=== PATIENT | male | born 1945 | race Caucasian/White ===

== ENCOUNTER 2018-02-01 15:19 | Emergency (ER) | payer MEDICARE, BC ==
[2018-02-01] MEDS ORDERED: Albuterol/Ipratropium 3.0-0.5 MG/3 ML Neb Soln NEB ONE (15:44)
--- NOTE | 2018-02-01 15:57 | EDM.PDOC ---
ED HPI GENERAL MEDICAL PROBLEM - General Chief Complaint: Respiratory Problem Stated Complaint: DIFFICULTY BREATHING Time Seen by Provider: 02/01/18 15:30 Source of Information: Reports: Patient History Limitations: Reports: No Limitations - History of Present Illness INITIAL COMMENTS - FREE TEXT/NARRATIVE: The patient presents with a cough and shortness of breath. This has been going on for a few days. He has a history of throat cancer with surgery on now a trach stoma. He had the paramedics stop by last night and they recommended he see his doctor. He cannot wait until tomorrow. He is coughing up some yellow phlegm and blood with it. He has no history of COPD or asthma. He quit smoking 7 years ago when he was diagnosed with throat cancer. He has some pain with coughing. He does not feel like he has a fever or chills. He has no abdominal pain, nausea or vomiting. Onset: Gradual Duration: Day(s): (4) Location: Reports: Chest Quality: Reports: Ache Severity: Mild Worsens with: Reports: Other (coughing) Associated Symptoms: Reports: Chest Pain, Cough, cough w sputum, Shortness of Breath. Denies: Fever/Chills, Headaches, Nausea/Vomiting Chest Pain Score (Numeric/FACES): 5 - Related Data Allergies Allergy/AdvReac Type Severity Reaction Status Date / Time No Known Allergies Allergy Verified 01/05/16 13:33 Home Meds: Home Meds Azithromycin [IJD: Azithromycin] 250 mg PO DAILY #4 tab 02/01/18 [Rx] Past Medical History HEENT History: Reports: Hard of Hearing, Impaired Vision Cardiovascular History: Reports: High Cholesterol Respiratory History: Reports: Pneumonia, Recurrent, Other (See Below) Other Respiratory History: trach has been for almost 7 years-throat cancer Musculoskeletal History: Reports: Arthritis Other Musculoskeletal History: hands and toes Psychiatric History: Reports: None, Anxiety, Dementia Oncologic (Cancer) History: Reports: Other (See Below) Other Oncologic History: throat cancer Social & Family History - Tobacco Use Smoking Status *Q: Former Smoker - Recreational Drug Use Recreational Drug Use: No ED ROS GENERAL - Review of Systems Review Of Systems: See Below Constitutional: Reports: No Symptoms HEENT: Reports: No Symptoms Respiratory: Reports: Shortness of Breath, Cough Cardiovascular: Reports: Chest Pain (with coughing) Endocrine: Reports: No Symptoms GI/Abdominal: Reports: No Symptoms : Reports: No Symptoms ED EXAM, GENERAL - Physical Exam Exam: See Below Exam Limited By: No Limitations General Appearance: Alert, No Apparent Distress Ears: Normal External Exam Nose: Normal Inspection Head: Atraumatic, Normocephalic Neck: Normal Inspection Respiratory/Chest: No Respiratory Distress, Rhonchi (Left lung) Cardiovascular: Regular Rate, Rhythm, No Edema, No Murmur GI/Abdominal: Soft, Non-Tender, No Organomegaly, No Mass Rectal (Males) Exam: Normal Exam Back Exam: Normal Inspection Extremities: Normal Inspection Course - Vital Signs Last Recorded V/S: Last Vital Signs Temp 99.2 F 02/01/18 15:32 Pulse 92 02/01/18 15:32 Resp 20 02/01/18 15:32 BP 150/75 H 02/01/18 15:32 Pulse Ox 93 L 02/01/18 15:55 - Orders/Labs/Meds Orders: Active Orders 24 hr Category Date Time Status Cardiac Monitoring [RC] . DIRECTED Care 02/01/18 15:44 Active Peripheral IV Care [RC] . DIRECTED Care 02/01/18 16:48 Active RT Aerosol Therapy [RC] ASDIRECTED Care 02/01/18 15:44 Active Chest 2V [CR] Stat Exams 02/01/18 15:44 Taken Sodium Chloride 0.9% [Normal Saline] 100 ml Med 02/01/18 17:15 Active IV ASDIRECTED Sodium Chloride 0.9% [Saline Flush] Med 02/01/18 16:48 Active 10 ml FLUSH ASDIRECTED PRN Peripheral IV Insertion Adult [OM.PC] Routine Oth 02/01/18 16:48 Ordered Medication Orders Sodium Chloride (Normal Saline) 100 mls @ 60 mls/hr IV ASDIRECTED COLE Last Admin: 02/01/18 17:27 Dose: 60 mls/hr Sodium Chloride (Saline Flush) 10 ml FLUSH ASDIRECTED PRN PRN Reason: Keep Vein Open Last Admin: 02/01/18 17:00 Dose: 10 ml Labs: Laboratory Tests 02/01/18 02/01/18 02/01/18 Range/Units 15:57 15:57 15:57 WBC 9.03 (4.23-9.07) K/mm3 RBC 4.28 L (4.63-6.08) M/mm3 Hgb 13.9 (13.7-17.5) gm/L Hct 41.5 (40.1-51.0) % MCV 97.0 H (79.0-92.2) fl MCH 32.5 H (25.7-32.2) pg MCHC 33.5 (32.2-35.5) g/dl RDW Std Deviation 43.8 (35.1-43.9) fL Plt Count 185 (163-337) K/mm3 MPV 9.2 L (9.4-12.3) fl Neut % (Auto) 82.3 H (34.0-67.9) % Lymph % (Auto) 5.4 L (21.8-53.1) % [place] % (Auto) 10.5 (5.3-12.2) % Eos % (Auto) 1.2 (0.8-7.0) Baso % (Auto) 0.4 (0.1-1.2) % Neut # (Auto) 7.42 H (1.78-5.38) K/mm3 Lymph # (Auto) 0.49 L (1.32-3.57) K/mm3 [place] # (Auto) 0.95 H (0.30-0.82) K/mm3 Eos # (Auto) 0.11 (0.04-0.54) K/mm3 Baso # (Auto) 0.04 (0.01-0.08) K/mm3 Manual Slide Review Abnormal smear D-Dimer, Quantitative 0.82 H (0.19-0.59) mg/L Sodium 138 (136-145) mEq/L Potassium 4.1 (3.5-5.1) mEq/L Chloride 104 (98-107) mEq/L Carbon Dioxide 24 (21-32) mEq/L Anion Gap 14.1 (5-15) BUN 21 H (7-18) mg/dL Creatinine 1.0 (0.7-1.3) mg/dL Est Cr Clr Drug Dosing 72.21 mL/min Estimated GFR (MDRD) > 60 (>60) mL/min BUN/Creatinine Ratio 21.0 H (14-18) Glucose 129 H (83-115) mg/dL Calcium 8.5 (8.5-10.1) mg/dL Total Bilirubin 0.4 (0.2-1.0) mg/dL AST 22 (15-37) U/L ALT 18 (16-63) U/L Alkaline Phosphatase 62 (46-116) U/L Total Protein 6.8 (6.4-8.2) g/dl Albumin 3.4 (3.4-5.0) g/dl Globulin 3.4 gm/dL Albumin/Globulin Ratio 1.0 (1-2) Meds: Medications Generic Name Dose Route Start Last Admin Trade Name Freq PRN Reason Stop Dose Admin Sodium Chloride 100 mls @ 60 mls/hr 02/01/18 17:15 02/01/18 17:27 Normal Saline IV 60 mls/hr ASDIRECTED COLE Administration Sodium Chloride 10 ml 02/01/18 16:48 02/01/18 17:00 Saline Flush FLUSH 10 ml ASDIRECTED PRN Administration Keep Vein Open Discontinued Medications Generic Name Dose Route Start Last Admin Trade Name Freq PRN Reason Stop Dose Admin Albuterol/Ipratropium 3 ml 02/01/18 15:44 02/01/18 15:55 Duoneb 3.0-0.5 Mg/3 Ml NEB 02/01/18 15:45 3 ml ONETIME ONE Administration Iopamidol 100 ml 02/01/18 17:07 02/01/18 17:27 Isovue-370 (76%) IVPUSH 02/01/18 17:08 80 ml ONETIME ONE Administration Sodium Chloride 10 ml 02/01/18 17:07 02/01/18 17:27 Saline Flush FLUSH 02/01/18 17:08 10 ml ONETIME ONE Administration - Re-Assessments/Exams Free Text/Narrative Re-Assessment/Exam: 02/01/18 15:56 I ordered labs, CXR and a duoneb. 02/01/18 18:00 His CXR looks like an infiltrate in the left lower lung. His WBC is normal. His D-dimer was elevated at 0.82. I ordered a CT angio of he chest. His CT shows no findings of pulmonary embolism. Diffuse coronary artery calcification. Scarring/atelectasis to the left lung. I feel he has bronchitis. I will give him an inhaler with teaching here and some zithromax. I will also have him some use some robitussion or other cough medicine for the cough. Departure - Departure Time of Disposition: 18:05 Disposition: Home, Self-Care 01 Condition: Good Clinical Impression: Bronchitis - Discharge Information Prescriptions: Azithromycin [IJD: Azithromycin] 250 mg PO DAILY #4 tab Referrals: Armando Solis MD [Primary Care Provider] - 1 Week Forms: ED Department Discharge Additional Instructions: Take the zithromax daily for 4 more days. Use the inhaler 2 puffs every 6 hours as needed for shortness of breath. Use robitussin or some other cough medicine for cough. Please return if you are worse. - My Orders Last 24 Hours: My Active Orders 02/01/18 15:44 Cardiac Monitoring [RC] . DIRECTED RT Aerosol Therapy [RC] ASDIRECTED Chest 2V [CR] Stat 02/01/18 16:48 Peripheral IV Care [RC] . DIRECTED Sodium Chloride 0.9% [Saline Flush] 10 ml FLUSH ASDIRECTED PRN Peripheral IV Insertion Adult [OM.PC] Routine 02/01/18 17:15 Sodium Chloride 0.9% [Normal Saline] 100 ml IV ASDIRECTED - Assessment/Plan Last 24 Hours: My Active Orders 02/01/18 15:44 Cardiac Monitoring [RC] . DIRECTED RT Aerosol Therapy [RC] ASDIRECTED Chest 2V [CR] Stat 02/01/18 16:48 Peripheral IV Care [RC] . DIRECTED Sodium Chloride 0.9% [Saline Flush] 10 ml FLUSH ASDIRECTED PRN Peripheral IV Insertion Adult [OM.PC] Routine 02/01/18 17:15 Sodium Chloride 0.9% [Normal Saline] 100 ml IV ASDIRECTED
[2018-02-01] MEDS ORDERED: Sodium Chloride 0.9% 10 ML Syringe FLUSH PRN (16:48)
[2018-02-01] MEDS ORDERED: Sodium Chloride 0.9% 10 ML Syringe FLUSH ONE (17:07)
[2018-02-01] MEDS ORDERED: Iopamidol 755 Mg/ML 100 ML Bottle IVPUSH ONE (17:07)
[2018-02-01] MEDS ORDERED: Sodium Chloride 0.9% 100 ML IV SCH (17:15)
--- NOTE | 2018-02-01 17:52 | CT ---
CT chest Technique: Multiple axial sections through the chest were obtained. Intravenous contrast was utilized. Study has been performed as a pulmonary angiogram protocol. Comparison: No prior CT exam, chest x-ray performed earlier in the same day (3:58 PM as well as chest x-ray of 01/05/16. Findings: Pulmonary arteries are well-opacified. No filling defects are seen to indicate pulmonary embolism. Diffuse coronary artery calcification is seen. Small lymph nodes seen within the mediastinum and within the right hilar region believed to be within normal limits. Several small lymph nodes also seen within the subcarinal region. No pericardial thickening is seen. Small portion of the visualized upper abdominal structures shows evidence of prior cholecystectomy. Slight basilar interstitial fibrosis is seen. Scarring/atelectasis is seen within the lingula. Lungs otherwise are clear with no acute parenchymal densities being seen. No pleural effusions are seen. No pneumothorax is seen. Bone window settings were reviewed which shows scattered degenerative endplate spurring within the spine. Impression: 1. No findings of pulmonary embolism. 2. Diffuse coronary artery calcification. 3. Other findings are felt to be incidental as described above. Diagnostic code #2
[2018-02-01] MEDS ORDERED: Albuterol 6.7 GM Inhaler INH ONE (18:02)
[2018-02-01] MEDS ORDERED: Azithromycin 250 MG Tab PO ONE (18:03)
[2018-02-01 19:11] VITALS: BP 125/90
--- NOTE | 2018-02-02 07:23 | CR ---
Chest: Two views of the chest were obtained. Comparison: Prior chest x-ray of 01/05/16. Heart size is normal. Tortuous thoracic aorta is seen. Scarring is seen within the left base. Lungs otherwise are clear with no acute parenchymal change. Heart size is normal. Tortuous thoracic aorta is seen. Bony structures show degenerative spurring within the spine. Impression: 1. Slight parenchymal scarring within the left base. Other incidental findings. 2. Nothing acute is appreciated on two-view chest x-ray. Diagnostic code #2
== END 2018-02-01 18:20 | disposition home or self-care (01) ==
LOC: JD.ED 15:19
DX: J40 Bronchitis, not specified as acute or chronic (principal); Z87.891 Personal history of nicotine dependence; Z85.12 Personal history of malignant neoplasm of trachea
CPT/HCPCS: 36415; 71046; 71275; 80053; 85025; 85379; 94640; 94664; 99285; A9270; J7030; J7050; Q9967; 99283

== ENCOUNTER 2019-01-22 06:15 | Day surgery (SDC) | payer MEDICARE, BC ==
--- NOTE | 2019-01-21 11:00 | PCM.PREANE ---
Preanesthetic Assessment - Anesthesia/Transfusion/Family Hx Anesthesia History: Prior Anesthesia Without Reaction Family History of Anesthesia Reaction: No Transfusion History: No Prior Transfusion(s) Intubation History: Unknown - Review of Systems Pulmonary: No Symptoms (History of larynx cancer with laryngectomy-stoma noted) Gastrointestinal: No Symptoms (History of prostate cancer) Neurological: No Symptoms Other: Reports: Depression, Anxiety - Physical Assessment NPO Status Date: 01/21/19 Height: 1.8 m ASA Class: 2 Mental Status: Alert & Oriented x3 - Allergies Allergies/Adverse Reactions: Allergies Allergy/AdvReac Type Severity Reaction Status Date / Time No Known Allergies Allergy Verified 01/05/16 13:33 - Anesthesia Plan Pre-Op Medication Ordered: None - Acknowledgements Anesthesia Type Planned: MAC Pt an Appropriate Candidate for the Planned Anesthesia: Yes Alternatives and Risks of Anesthesia Discussed w Pt/Guardian: Yes Pt/Guardian Understands and Agrees with Anesthesia Plan: Yes PreAnesthesia Questionnaire HEENT History: Reports: Hard of Hearing, Impaired Vision Cardiovascular History: Reports: High Cholesterol Respiratory History: Reports: Pneumonia, Recurrent, Other (See Below) Other Respiratory History: trach has been for almost 7 years-throat cancer Musculoskeletal History: Reports: Arthritis Other Musculoskeletal History: hands and toes Psychiatric History: Reports: None, Anxiety, Dementia Oncologic (Cancer) History: Reports: Other (See Below) Other Oncologic History: throat cancer - HOME MEDS Home Medications: Home Meds Azithromycin [IJD: Azithromycin] 250 mg PO DAILY #4 tab 02/01/18 [Rx] - CURRENT (IN HOUSE) MEDS Current Meds: Current Medications Lactated Ringer's (Ringers, Lactated) 1,000 mls @ 125 mls/hr IV ASDIRECTED COLE Stop: 01/22/19 23:00 Lidocaine/Sodium Bicarbonate (Buffered Lidocaine 1% In Ns 8.4%) 0.25 ml IDERM ONETIME PRN PRN Reason: Prior to IV Start Stop: 01/22/19 18:00 Sodium Chloride (Saline Flush) 10 ml FLUSH ASDIRECTED PRN PRN Reason: Keep Vein Open Stop: 01/22/19 18:00
[2019-01-22] MEDS ORDERED: Sodium Chloride 0.9% 10 ML Syringe FLUSH PRN (07:00)
[2019-01-22] MEDS ORDERED: Lidocaine 1%/Sod Bicarbonate in NS 8.4% 1 ML Syringe IDERM PRN (07:00)
[2019-01-22] MEDS ORDERED: Lactated Ringers 1,000 ML IV SCH (07:00)
--- NOTE | 2019-01-22 07:09 | PCM.PREANE ---
Preanesthetic Assessment - Anesthesia/Transfusion/Family Hx Anesthesia History: Prior Anesthesia Without Reaction Family History of Anesthesia Reaction: No Transfusion History: No Prior Transfusion(s) Intubation History: Unknown - Review of Systems General: No Symptoms Pulmonary: No Symptoms (Laryngectomy with stoma noted along with speaking valve. ) Cardiovascular: No Symptoms Gastrointestinal: No Symptoms (History of prostate cancer) Neurological: No Symptoms Other: Reports: Easy Bruising, Depression, Anxiety - Physical Assessment NPO Status Date: 01/21/19 NPO Status Time: 21:00 Pulse: 70 O2 Sat by Pulse Oximetry: 97 Respiratory Rate: 16 Blood Pressure: 121/80 Temperature: 36.9 C Vital Signs: Last Vital Signs Temp 36.9 C 01/22/19 06:30 Pulse 70 01/22/19 06:30 Resp 16 01/22/19 06:30 BP 121/80 01/22/19 06:30 Pulse Ox 97 01/22/19 06:30 Height: 1.83 m Weight: 92.533 kg ASA Class: 2 Mental Status: Alert & Oriented x3 Airway Class: Mallampati = 2 Dentition: Reports: Normal Dentition, Caries Thyro-Mental Finger Breadths: 3 Mouth Opening Finger Breadths: 3 ROM/Head Extension: Full Lungs: Clear to Auscultation, Normal Respiratory Effort Cardiovascular: Regular Rate, Regular Rhythm, No Murmurs - Allergies Allergies/Adverse Reactions: Allergies Allergy/AdvReac Type Severity Reaction Status Date / Time No Known Allergies Allergy Verified 01/21/19 14:05 - Anesthesia Plan Pre-Op Medication Ordered: None - Acknowledgements Anesthesia Type Planned: MAC Pt an Appropriate Candidate for the Planned Anesthesia: Yes Alternatives and Risks of Anesthesia Discussed w Pt/Guardian: Yes Pt/Guardian Understands and Agrees with Anesthesia Plan: Yes PreAnesthesia Questionnaire HEENT History: Reports: Other (See Below) Other HEENT History: hearing loss, laryngectomy Cardiovascular History: Reports: High Cholesterol Respiratory History: Reports: None Other Respiratory History: trach has been for almost 7 years-throat cancer Genitourinary History: Reports: BPH REPORTING SPECIALIST History: Reports: None Musculoskeletal History: Reports: None Other Musculoskeletal History: hands and toes Neurological History: Reports: None Psychiatric History: Reports: None Endocrine/Metabolic History: Reports: None Hematologic History: Reports: None Oncologic (Cancer) History: Reports: None Other Oncologic History: throat cancer Dermatologic History: Reports: None - Past Surgical History Head Surgeries/Procedures: Reports: None Cardiovascular Surgical History: Reports: None Respiratory Surgical History: Reports: None GI Surgical History: Reports: Cholecystectomy Male Surgical History: Reports: Prostatectomy Neurological Surgical History: Reports: None Musculoskeletal Surgical History: Reports: None Oncologic Surgical History: Reports: None Dermatological Surgical History: Reports: None - SUBSTANCE USE Smoking Status *Q: Former Smoker Recreational Drug Use History: No - HOME MEDS Home Medications: Home Meds ClonazePAM [KlonoPIN] 0.5 mg PO DAILY PRN 01/21/19 [History] Cyanocobalamin (Vitamin B-12) [Vitamin B-12] 1,000 mcg PO DAILY 01/21/19 [ History] FLUoxetine [PROzac] 10 mg PO DAILY 01/21/19 [History] Multivitamin [Daily Multiple Vitamin] 1 tab PO DAILY 01/21/19 [History] Pravastatin [Pravachol] 40 mg PO DAILY 01/21/19 [History] Ubidecarenone [Coq-10] 200 mg PO DAILY 01/21/19 [History] Vitamin B Complex [B Complex] 1 tab PO DAILY 01/21/19 [History] buPROPion [Wellbutrin SR] 150 mg PO DAILY 01/21/19 [History] - CURRENT (IN HOUSE) MEDS Current Meds: Current Medications Lactated Ringer's (Ringers, Lactated) 1,000 mls @ 125 mls/hr IV ASDIRECTED COLE Stop: 01/22/19 23:00 Last Admin: 01/22/19 06:45 Dose: 125 mls/hr Lidocaine/Sodium Bicarbonate (Buffered Lidocaine 1% In Ns 8.4%) 0.25 ml IDERM ONETIME PRN PRN Reason: Prior to IV Start Stop: 01/22/19 18:00 Last Admin: 01/22/19 06:45 Dose: 0.25 ml Sodium Chloride (Saline Flush) 10 ml FLUSH ASDIRECTED PRN PRN Reason: Keep Vein Open Stop: 01/22/19 18:00
[2019-01-22] MEDS ORDERED: Lidocaine 1% 6 ML ONE (07:24)
[2019-01-22] MEDS ORDERED: Propofol 200 MG/20 ML SDV ONE (07:24)
[2019-01-22] MEDS ORDERED: fentaNYL 100 MCG/2 ML SDV ONE (07:25)
[2019-01-22] MEDS ORDERED: Lactated Ringers 1,000 ML ONE (07:40)
[2019-01-22] MEDS ORDERED: Simethicone Drops 40 MG/0.6 ML 30 ML Bottle ONE (08:00)
--- NOTE | 2019-01-22 08:27 | PCM.OPNOTE ---
- General Post-Op/Procedure Note Date of Surgery/Procedure: 01/22/19 Operative Procedure(s): Colonoscopy with hot snare polypectomy and cold forceps biopsy Findings: Colon polyps x 5 Pre Op Diagnosis: Family history of colon cancer Post-Op Diagnosis: Colon polyps x 5 Anesthesia Technique: MAC Primary Surgeon: Armando Solis Anesthesia Provider: Victoria Montanez EBL in mLs: 5 Complications: None Condition: Good Free Text/Narrative:: After the patient gave verbal and written consent he was placed on blood pressure and pulse ox monitoring, he was give IV sedation which he tolerated well. The olympus colonoscope was inserted per rectum and advanced to the cecum without difficulty, the ileocecal valve and appendiceal orfice were imaged documenting cecal intubation. The scope was slowly withdrawn. The mucosal surfaces were carefully examined. The prep was good, the views were good. 2 x 2 mm ascending colon polyps were noted and removed with cold forceps biopsy, 2 x 2 mm sigmoid polyps were noted and removed with cold forceps biopsy. There was good hemostasis. There was a 6 mm distal sigmoid polyp noted and removed with hot snare polypectomy. There was good hemostasis. The scope was then retroflexed in the rectum and the details are above. The patient left the endoscopy suite in good condition. There were no complications.
--- NOTE | 2019-01-22 08:28 | PCM48HPAN ---
Post Anesthesia Note - EVALUATION WITHIN 48HRS OF ANESTHETIC Vital Signs in Normal Range: Yes Patient Participated in Evaluation: Yes Respiratory Function Stable: Yes Airway Patent: Yes Cardiovascular Function Stable: Yes Hydration Status Stable: Yes Pain Control Satisfactory: Yes Nausea and Vomiting Control Satisfactory: Yes Mental Status Recovered: Yes
[2019-01-22 09:00] VITALS: BP 125/67
== END 2019-01-22 09:12 | disposition home or self-care (01) ==
LOC: JD.SDS 06:15
PROVIDERS: ATTEND Family Medicine
DX: Z12.11 Encounter for screening for malignant neoplasm of colon (principal); D12.2 Benign neoplasm of ascending colon; D12.5 Benign neoplasm of sigmoid colon; E78.2 Mixed hyperlipidemia; F41.9 Anxiety disorder, unspecified; F32.9 Major depressive disorder, single episode, unspecified; Z80.0 Family history of malignant neoplasm of digestive organs; Z79.899 Other long term (current) drug therapy
CPT/HCPCS: 45380; 45385; A9270; J2001; J2704; J3010; J7120; 00812

== ENCOUNTER 2021-07-02 10:37 | Emergency (ER) | payer MEDICARE, BC ==
[2021-07-02] MEDS ORDERED: Sodium Chloride 0.9% 10 ML Syringe FLUSH PRN (11:03)
--- NOTE | 2021-07-02 11:11 | EDM.PDOC ---
ED HPI GENERAL MEDICAL PROBLEM - General Chief Complaint: Cardiovascular Problem Stated Complaint: [facility] Time Seen by Provider: 07/02/21 10:58 Source of Information: Reports: Patient, EMS History Limitations: Reports: No Limitations - History of Present Illness INITIAL COMMENTS - FREE TEXT/NARRATIVE: The patient presents by [facility] for chest pain. The patient says his blood pressure has been up and down the past few days and this morning he had some chest heaviness. He also did not feel well yesterday. He has no fever, chills, cough, shortness of breath, abdominal pain, nausea or vomiting. He has a history of throat cancer with surgery and he uses a voice box to help him talk. He had stents placed in May and he is having more cardiac stents placed on July 24. The chest heaviness is gone now. Onset: Gradual Duration: Hour(s): Location: Reports: Chest Quality: Reports: Other (heaviness) Severity: Mild Improves with: Reports: None Worsens with: Reports: None Associated Symptoms: Reports: Chest Pain. Denies: Cough, Fever/Chills, Headaches, Nausea/Vomiting, Shortness of Breath - Related Data Allergies Allergy/AdvReac Type Severity Reaction Status Date / Time No Known Allergies Allergy Verified 07/02/21 10:41 Home Meds: Home Meds ClonazePAM [KlonoPIN] 0.5 mg PO DAILY PRN 01/21/19 [History] Cyanocobalamin (Vitamin B-12) [Vitamin B-12] 100 mcg PO DAILY 01/21/19 [History] FLUoxetine [PROzac] 10 mg PO DAILY 01/21/19 [History] Multivitamin [Daily Multiple Vitamin] 1 tab PO DAILY 01/21/19 [History] Pravastatin [Pravachol] 40 mg PO DAILY 01/21/19 [History] Ubidecarenone [Coq-10] 200 mg PO DAILY 01/21/19 [History] Vitamin B Complex [B Complex] 1 tab PO DAILY 01/21/19 [History] buPROPion [Wellbutrin SR] 150 mg PO DAILY 01/21/19 [History] Clopidogrel Bisulfate [Plavix] 75 mg PO DAILY 07/02/21 [History] Isosorbide Mononitrate [Imdur] 15 mg PO DAILY 07/02/21 [History] Rosuvastatin [Crestor] 20 mg PO DAILY 07/02/21 [History] Past Medical History HEENT History: Reports: Hard of Hearing Other HEENT History: hearing loss, laryngectomy Cardiovascular History: Reports: High Cholesterol, [place] Respiratory History: Reports: None Other Respiratory History: trach has been for almost 7 years-throat cancer Gastrointestinal History: Reports: Colon Polyp Genitourinary History: Reports: BPH [employer] History: Reports: None Musculoskeletal History: Reports: Arthritis Other Musculoskeletal History: hands and toes Neurological History: Reports: Other (See Below) (Intention tremor) Psychiatric History: Reports: Anxiety, Depression Endocrine/Metabolic History: Reports: None Hematologic History: Reports: None Oncologic (Cancer) History: Reports: Prostate, Other (See Below) Other Oncologic History: throat cancer Dermatologic History: Reports: None - Past Surgical History Head Surgeries/Procedures: Reports: None HEENT Surgical History: Reports: Other (See Below) Cardiovascular Surgical History: Reports: Coronary Artery Stent GI Surgical History: Reports: Cholecystectomy, Colonoscopy, Hernia, Abdominal Male Surgical History: Reports: Prostatectomy Oncologic Surgical History: Reports: Other (See Below) Other Oncologic Surgeries/Procedures: trach placed. Social & Family History - Tobacco Use Tobacco Use Status *Q: Former Tobacco User Used Tobacco, but Quit: Yes Month/Year Tobacco Last Used: Oct 2011 - Caffeine Use Caffeine Use: Reports: Coffee - Recreational Drug Use Recreational Drug Use: No - Living Situation & Occupation Living situation: Reports: , with Spouse Occupation: Retired ED ROS GENERAL - Review of Systems Review Of Systems: See Below Constitutional: Reports: No Symptoms HEENT: Reports: No Symptoms Respiratory: Reports: No Symptoms Cardiovascular: Reports: Chest Pain Endocrine: Reports: No Symptoms GI/Abdominal: Reports: No Symptoms : Reports: No Symptoms ED EXAM, GENERAL - Physical Exam Exam: See Below Exam Limited By: No Limitations General Appearance: Alert, No Apparent Distress Ears: Normal External Exam Nose: Normal Inspection Throat/Mouth: Normal Inspection Neck: Normal Inspection Respiratory/Chest: No Respiratory Distress, Lungs Clear, Normal Breath Sounds Cardiovascular: Regular Rate, Rhythm, No Edema, No Murmur GI/Abdominal: Soft, Non-Tender, No Organomegaly, No Mass Back Exam: Normal Inspection Extremities: Normal Inspection Neurological: Alert, Oriented, No Motor/Sensory Deficits #1 Interpretation EKG Date: 07/02/21 Time: 10:39 Rhythm: NSR Rate (Beats/Min): 68 [place]: Normal P-Wave: Present QRS: Normal ST-T: Normal QT: Normal EKG Interpretation Comments: Q waves in the inferior leads and flipped T waves Course - Vital Signs Last Recorded V/S: Last Vital Signs Temp 97.2 F 07/02/21 10:41 Pulse 86 07/02/21 10:41 Resp 20 07/02/21 10:41 BP 123/35 L 07/02/21 10:41 Pulse Ox 96 07/02/21 10:41 - Orders/Labs/Meds Orders: Active Orders 24 hr Category Date Time Status Cardiac Monitoring [RC] . DIRECTED Care 07/02/21 11:03 Active Peripheral IV Care [RC] . DIRECTED Care 07/02/21 11:04 Active TROPONIN I [CHEM] Stat Lab 07/02/21 12:38 Ordered Sodium Chloride 0.9% [Saline Flush] Med 07/02/21 11:03 Active 10 ml FLUSH ASDIRECTED PRN Peripheral IV Insertion Adult [OM.PC] Stat Oth 07/02/21 11:03 Ordered Medication Orders Sodium Chloride (Sodium Chloride 0.9% 10 Ml Syringe) 10 ml FLUSH ASDIRECTED PRN PRN Reason: Keep Vein Open Last Admin: 07/02/21 11:11 Dose: 10 ml Documented by: MATHEW Labs: Laboratory Tests 07/02/21 07/02/21 Range/Units 11:26 11:26 WBC 7.83 (4.23-9.07) K/mm3 RBC 4.14 L (4.63-6.08) M/mm3 Hgb 13.5 L (13.7-17.5) gm/dl Hct 40.8 (40.1-51.0) % MCV 98.6 H (79.0-92.2) fl MCH 32.6 H (25.7-32.2) pg MCHC 33.1 (32.2-35.5) g/dl RDW Std Deviation 45.7 H (35.1-43.9) fL Plt Count 183 (163-337) K/mm3 MPV 9.9 (9.4-12.3) fl Neut % (Auto) 69.7 H (34.0-67.9) % Lymph % (Auto) 15.2 L (21.8-53.1) % [place] % (Auto) 10.0 (5.3-12.2) % Eos % (Auto) 4.2 (0.8-7.0) Baso % (Auto) 0.6 (0.1-1.2) % Neut # (Auto) 5.46 H (1.78-5.38) K/mm3 Lymph # (Auto) 1.19 L (1.32-3.57) K/mm3 [place] # (Auto) 0.78 (0.30-0.82) K/mm3 Eos # (Auto) 0.33 (0.04-0.54) K/mm3 Baso # (Auto) 0.05 (0.01-0.08) K/mm3 Sodium 142 (136-145) mEq/L Potassium 4.0 (3.5-5.1) mEq/L Chloride 109 H (98-107) mEq/L Carbon Dioxide 28 (21-32) mEq/L Anion Gap 9.0 (5-15) BUN 17 (7-18) mg/dL Creatinine 0.9 (0.7-1.3) mg/dL Est Cr Clr Drug Dosing 73.21 mL/min Estimated GFR (MDRD) > 60 (>60) mL/min BUN/Creatinine Ratio 18.9 H (14-18) Glucose 77 (70-99) mg/dL Calcium 8.0 L (8.5-10.1) mg/dL Total Bilirubin 0.4 (0.2-1.0) mg/dL AST 22 (15-37) U/L ALT 32 (16-63) U/L Alkaline Phosphatase 56 (46-116) U/L Troponin I < 0.017 (0.00-0.056) ng/mL Total Protein 6.0 L (6.4-8.2) g/dl Albumin 3.0 L (3.4-5.0) g/dl Globulin 3.0 gm/dL Albumin/Globulin Ratio 1.0 (1-2) Meds: Medications Generic Name Dose Route Start Last Admin Trade Name Freq PRN Reason Stop Dose Admin Sodium Chloride 10 ml 07/02/21 11:03 07/02/21 11:11 Sodium Chloride 0.9% 10 Ml Syringe FLUSH 10 ml ASDIRECTED PRN Administration Keep Vein Open - Re-Assessments/Exams Free Text/Narrative Re-Assessment/Exam: 07/02/21 11:16 I ordered an IV saline lock, EKG, CXR and labs. Her EKG shows a NSR with no acute changes. He does have some Q waves in the inferior leads and flipped T waves in the inferior leads. 07/02/21 12:57 His CXR shows nothing acute. His CBC and CMP look good. His troponin is negative. I will do a repeat troponin and discharge him home. Departure - Departure Time of Disposition: 13:00 Disposition: Home, Self-Care 01 Condition: Good Clinical Impression: Atypical chest pain Referrals: Armando Solis MD [Primary Care Provider] - 1 Week Forms: ED Department Discharge Additional Instructions: Take your medications as prescribed. Follow up with Dr Chaparro within a week. Please return if you are worse. Sepsis Event Note (ED) - Evaluation Sepsis Screening Result: No Definite Risk - Focused Exam Vital Signs: Vital Signs Temp Pulse Resp BP Pulse Ox 07/02/21 10:41 97.2 F 86 20 123/35 L 96 - My Orders Last 24 Hours: My Active Orders 07/02/21 11:03 Cardiac Monitoring [RC] . DIRECTED Sodium Chloride 0.9% [Saline Flush] 10 ml FLUSH ASDIRECTED PRN Peripheral IV Insertion Adult [OM.PC] Stat 07/02/21 11:04 Peripheral IV Care [RC] . DIRECTED 07/02/21 12:38 TROPONIN I [CHEM] Stat - Assessment/Plan Last 24 Hours: My Active Orders 07/02/21 11:03 Cardiac Monitoring [RC] . DIRECTED Sodium Chloride 0.9% [Saline Flush] 10 ml FLUSH ASDIRECTED PRN Peripheral IV Insertion Adult [OM.PC] Stat 07/02/21 11:04 Peripheral IV Care [RC] . DIRECTED 07/02/21 12:38 TROPONIN I [CHEM] Stat
--- NOTE | 2021-07-02 11:51 | CR ---
Chest: Portable view of the chest was obtained. Comparison: Prior chest x-ray of 09/16/19. Heart size and mediastinum are within normal limits. Minimal scarring is seen within the left lung base. Lungs otherwise are clear. No acute osseous finding is seen. Impression: 1. Incidental findings. 2. Nothing acute is appreciated on portable chest x-ray. Diagnostic code #2
[2021-07-02 13:07] VITALS: BP 138/72; PULSE 55
== END 2021-07-02 13:20 | disposition home or self-care (01) ==
LOC: JD.ED 10:37
DX: R07.89 Other chest pain (principal); E78.00 Pure hypercholesterolemia, unspecified; I25.2 Old myocardial infarction; Z87.891 Personal history of nicotine dependence; Z79.02 Long term (current) use of antithrombotics/antiplatelets; Z79.899 Other long term (current) drug therapy
CPT/HCPCS: 36415; 71045; 71045-26; 80053; 84484; 85025; 93005; 99285-25

== ENCOUNTER 2024-08-30 15:28 | Emergency (ER) | payer MEDICARE ==
[2024-08-30] MEDS ORDERED: Sodium Chloride 0.9% 10 ML Syringe FLUSH PRN (16:10)
[2024-08-30 16:51] LABS: BASOPHILS ABSOLUTE AUTO 0.1 K/mm3 (0.0-0.2); BASOPHILS PERCENT AUTO 0.5 % (0.0-1.0); EOSINOPHILS ABSOLUTE AUTO 0.4 K/mm3 (0.0-0.4); EOSINOPHILS PERCENT AUTO 4.2 % (0.0-6.0); HEMATOCRIT 41.3 % (42.0-52.0); HEMOGLOBIN 13.9 gm/dl (14.0-18.0); IMMATURE GRAN ABSOLUTE AUTO 0.04 K/mm3 (0.00-0.05); IMMATURE GRAN PERCENT AUTO 0.4 % (0.0-0.4); LYMPHOCYTES ABSOLUTE AUTO 1.2 K/mm3 (1.0-4.8); LYMPHOCYTES PERCENT AUTO 12.4 % (24.0-44.0); MEAN CORPUSCULAR HEMOGLOBIN 33.3 pg (28.0-32.0); MEAN CORPUSCULAR HGB CONC 33.7 g/dl (32.0-36.0); MEAN PLATELET VOLUME 9.2 fl (9.4-12.4); MONOCYTES ABSOLUTE AUTO 0.8 K/mm3 (0.0-0.8); MONOCYTES PERCENT AUTO 8.7 % (0.0-8.0); NEUTROPHILS ABSOLUTE AUTO 7.1 K/mm3 (1.8-7.7); NEUTROPHILS PERCENT AUTO 73.8 % (41.0-71.0); PLATELET COUNT,PLT 191 K/mm3 (150-400); RED BLOOD CELL COUNT 4.17 M/mm3 (4.52-5.90); WHITE BLOOD CELL COUNT,WBC 9.63 K/mm3 (3.9-11.3)
[2024-08-30 17:16] LABS: INR 1.02; PROTHROMBIN TIME 10.8 SECONDS (9.7-12.0)
[2024-08-30 17:17] LABS: PTT,PARTIAL THROMBOPLSTIN TIME 23.8 SECONDS (21.7-31.4)
[2024-08-30 17:18] LABS: A/G RATIO 0.9 (1-2); ALBUMIN 3.2 g/dl (3.4-5.0); BILIRUBIN TOTAL 0.5 mg/dL (0.2-1.0); BUN/CREATININE RATIO 27.5 (14-18); CALCIUM 8.6 mg/dL (8.5-10.1); CREATININE 0.8 mg/dL (0.7-1.3); EST CRCL DRUG DOSING (CG) 78.44 mL/min; PROTEIN TOTAL,TP 6.6 g/dl (6.4-8.2)
[2024-08-30 18:44] VITALS: BP 119/93; PULSE 66
== END 2024-08-30 18:43 | disposition home or self-care (01) ==
LOC: JD.ED 15:28
DX: R04.2 Hemoptysis (principal); E78.00 Pure hypercholesterolemia, unspecified; I25.2 Old myocardial infarction; Z79.01 Long term (current) use of anticoagulants; Z90.49 Acquired absence of other specified parts of digestive tract; Z87.891 Personal history of nicotine dependence; Z79.899 Other long term (current) drug therapy
CPT/HCPCS: 36415; 71046; 71046-26; 80053; 85025; 85610; 85730; 99284; 99285

== ENCOUNTER 2024-09-03 12:48 | Emergency (ER) | payer MEDICARE ==
[2024-09-03 13:12] VITALS: BP 143/78; PULSE 74
[2024-09-03] MEDS: Tranexamic Acid 1,000 MG/10 ML Vial ONE (13:52)
== END 2024-09-03 14:30 | disposition home or self-care (01) ==
LOC: JD.ED 12:48
DX: R04.2 Hemoptysis (principal); Z79.01 Long term (current) use of anticoagulants; E78.00 Pure hypercholesterolemia, unspecified; I25.2 Old myocardial infarction; Z95.5 Presence of coronary angioplasty implant and graft; Z90.49 Acquired absence of other specified parts of digestive tract; Z79.899 Other long term (current) drug therapy
CPT/HCPCS: 94640; 99284; J3490